=== PATIENT | male | born 1975 ===

== ENCOUNTER 2024-12-05 08:10 | Outpatient (CLI) | payer OTHER | END 2024-12-05 08:11 | disposition home or self-care (01) | LOC: CSHSLEEP 08:10 | PROVIDERS: ATTEND Internal Medicine | DX: G47.33 Obstructive sleep apnea (adult) (pediatric) (principal); R53.83 Other fatigue; R09.89 Other specified symptoms and signs involving the circulatory and respiratory systems; G25.89 Other specified extrapyramidal and movement disorders; R51.9 Headache, unspecified; R06.83 Snoring | CPT/HCPCS: 95811 ==